=== PATIENT | male | born 1985 | race Hispanic/Latino ===

== ENCOUNTER 2018-06-30 14:14 | Emergency (ER) | payer BC ==
[~2018-06-30] VITALS: Ht 177.8 cm; Wt 149.7 kg
[2018-06-30] MEDS ORDERED: TORADOL IM ONE (14:30)
[2018-06-30 14:33] VITALS: BP 163/129
[2018-06-30] MEDS ORDERED: TORADOL ONE (14:34)
[2018-06-30 16:00] VITALS: BP 140/73
[2018-06-30 16:40] VITALS: BP 163/129
--- NOTE | 2018-07-04 01:36 | ER.PDOC ---
General Chief Complaint: Back Pain/Injury Stated Complaint: BACK INJURY Time seen by MD: 14:21 Source: patient Exam Limitations: no limitations History of Present Illness Initial Comments 32 y/o male presents with back pain and tightness after doing heavy lifting yesterday, states woke up with it, much worse with movement, has not taken any meds as of yet for it. No fever, no motor/sensory deficits, denies urinary retention, and no incontinence, no IVDA. Past Medical History Medical History: diabetes, hypertension Surgical History: other (toe amputations) Social History Smoking: less than 1 pack/day Alcohol Use: none Drug Use: none Review of Systems Constitutional: denies chills, denies fever EENTM: no symptoms reported Respiratory: no symptoms reported Cardiovascular: no symptoms reported Gastrointestinal: no symptoms reported Genitourinary: denies dysuria, denies frequency, denies hematuria Musculoskeletal: back pain; denies joint pain, denies joint swelling, denies muscle pain Skin: denies change in color, denies lesions, denies rash Psychiatric/Neurological: no symptoms reported All Other Systems: Reviewed and Negative Physical Exam Comments PHYSICAL EXAM: Vital Signs: please see electronic medical record. General: The patient is pleasant, mildly uncomfortable due to pain. HEENT: Patient normocephalic, atraumatic. Eyes: No injection, no significant icterus, otherwise normal. Neck: Gross observation of the neck is unremarkable. Respiratory: No respiratory distress. Neuro: The pt is awake. Alert and oriented. Grossly normal neurological exam. Strength 5/5 in the bilateral lower extremities. Psych: Normal Affect, normal speech. Skin: Exposed skin is within normal limits. MS: No obvious muscular asymmetry, bilateral paramedian lumbar muscular spasm. Progress Progress The patient presents with low back injury without evidence for a more malignant injury. Given the patient's presentation and physical exam findings, in addition to the patient's age/health I feel that imaging was not warranted at this time. The patient has significant muscular tenderness to palpation and some spasm in the lumbar paraspinous musculature. The patient had no significant muscular weakness, and there were no other significant neurological findings on exam, no sensation deficit or reflex abnormalities. The patient achieved significant relief of the symptoms with our interventions and was able to ambulate with some residual discomfort. The patient is a good candidate for outpatient symptomatic management. I instructed the patient that back pain of this nature will take time to improve , but it often does. I did discharge the patient with oral pain medications. Patient was instructed to return or call primary physician with any worsening symptoms including but not limited to: numbness or weakness in the legs, bowel or bladder problems, numbness in the groin. Patient was also instructed to return or call with any worsening symptomatology or questions. Departure Time of Disposition: 16:15 Disposition: 01 HOME, SELF-CARE Impression: Primary Impression: Lumbar sprain Condition: Stable Patient Instructions: Ketorolac injection, Low Back Strain with Rehab-SportsMed , Diazepam tablets Referrals: [facility] ([facility]) PRIMARY CARE PROVIDER Additional Instructions: AT HOME: Valium 10mg by mouth every 6 hours as needed for muscle spasm #10 Ibuprofen 800mg by mouth every 8 hours as needed for 5 days #15 Follow up with your primary care provider. Ice 20 minutes on [address] barrier between skin and ice AT ER: Examined by Dr. Dunn Toradol was given to you in the ER Duration or Time Spent with Pa: JIM TORRES D0 Jul 04, 2018 01:36
== END 2018-06-30 16:36 | disposition home or self-care (01) ==
LOC: ER 14:14
DX: S33.5XXA Sprain of ligaments of lumbar spine, initial encounter (principal); I10 Essential (primary) hypertension; E11.9 Type 2 diabetes mellitus without complications; F17.210 Nicotine dependence, cigarettes, uncomplicated; Z89.429 Acquired absence of other toe(s), unspecified side; X50.0XXA Overexertion from strenuous movement or load, initial encounter; Y93.89 Activity, other specified; Y92.89 Other specified places as the place of occurrence of the external cause; Y99.8 Other external cause status
CPT/HCPCS: 96372; 99283; J1885